=== PATIENT | male | born 1960 | race Caucasian/White ===

== ENCOUNTER 2023-07-09 07:18 | Observation (INO) | payer OTHER ==
[~2023-07-09] VITALS: Ht 172.7 cm; Wt 95.3 kg
[2023-07-09 07:29] VITALS: BP_SYST 145; PULSE 91; RESP 20; TEMP 98.9; O2SAT 96
[2023-07-09] MEDS ORDERED: VANCOMYCIN HCL 1,000 MG in NS 250 ML IV ONE (07:45)
[2023-07-09] MEDS ORDERED: KETOROLAC TROMETHAMINE 15 MG VIAL IVP ONE (07:45)
[2023-07-09 07:54] LABS: BASOPHILS % (AUTO) 0.3 % (0.0-2.0); EOSINOPHILS # (AUTO) 0.1 K/uL (0.0-0.4); EOSINOPHILS % (AUTO) 0.7 % (0.0-4.0); HEMATOCRIT 38.6 % (36-54); HEMOGLOBIN 12.6 g/dL (14.0-18.0); LYMPHOCYTES # (AUTO) 1.3 K/uL (1.0-5.5); LYMPHOCYTES % (AUTO) 10.6 % (20.5-51.5); MEAN CORPUSCULAR HEMOGLOBIN 27 pg (27-31); MEAN CORPUSCULAR HGB CONC 33 % (32-36); MEAN CORPUSCULAR VOLUME 84 fL (79.0-98.0); MONOCYTES # (AUTO) 1.4 K/uL (0.0-1.0); MONOCYTES % (AUTO) 11.3 % (1.7-9.3); NEUTROPHILS # (AUTO) 9.6 K/uL (1.8-7.7); NEUTROPHILS % (AUTO) 77.1 % (40.0-70.0); PLATELET COUNT (AUTO) 365 K/uL (130-430); RED CELL DISTRIBUTION WIDTH 12.8 % (9.0-15.0); WHITE BLOOD COUNT (AUTO) 12.5 K/uL (4.8-10.8)
[2023-07-09] MEDS ORDERED: VANCOMYCIN HCL 1000 MG/VIAL IV ONE (07:56)
[2023-07-09] MEDS ORDERED: ATOR20TA64 PO (08:04)
[2023-07-09 08:09] LABS: CALCIUM 9.9 mg/dL (8.4-11.0); CREATININE 1.35 mg/dL (0.55-1.30)
[2023-07-09 08:11] LABS: INR 1.1 (0.80-1.20); PROTHROMBIN TIME 10.9 SECS (9.5-12.5)
[2023-07-09 08:14] LABS: ALBUMIN 3.3 g/dL (3.4-4.8); TOTAL BILIRUBIN 0.5 mg/dL (0.0-1.0); TOTAL PROTEIN, SERUM 7.8 g/dL (6.4-8.3)
[2023-07-09] MEDS ORDERED: MIDAZOLAM HCL 2 MG/2 ML VIAL (VERSED) ONE (09:41)
[2023-07-09] MEDS ORDERED: fentaNYL CITRATE/PF 100 MCG/2 ML AMP ONE (09:42)
[2023-07-09] MEDS ORDERED: NACL 0.9% 1,000 ML IV ONE (09:45)
[2023-07-09] MEDS ORDERED: ONDANSETRON HCL 4 MG/2 ML VIAL ONE ×2 (10:00→12:43)
[2023-07-09] MEDS ORDERED: BUPIVACAINE /PF 0.25% 30 ML VIAL INJ ONE ×2 (10:00→12:43)
[2023-07-09] MEDS ORDERED: PROPOFOL 200MG/ 20ML VIAL (DIPRIVAN) IV ONE ×2 (10:00→12:43)
[2023-07-09] MEDS ORDERED: SUCCINYLCHOLINE CHLORIDE 20 MG/ML(QUELICIN) ONE ×2 (10:00→12:43)
[2023-07-09] MEDS ORDERED: SEVOFLURANE 15 MIN GAS INH ONE ×2 (10:00→12:43)
[2023-07-09] MEDS ORDERED: METOCLOPRAMIDE HCL 10 MG/2 ML VIAL ONE ×2 (10:00→12:43)
[2023-07-09] MEDS ORDERED: NS IRRIG SOLN 1000 ML IR ONE ×2 (10:00→12:43)
[2023-07-09] MEDS ORDERED: WATER FOR IRRIGATION,STERILE 1,000 ML IRRIG.SOLN IR ONE ×2 (10:00→12:43)
[2023-07-09] MEDS ORDERED: LR 1,000 ML IV.SOLN IV ONE ×2 (10:00→12:43)
[2023-07-09] MEDS ORDERED: ONDANSETRON HCL 4 MG/2 ML VIAL IVP PRN ×2 (11:00)
[2023-07-09] MEDS ORDERED: HYDROmorphone 2 MG/ML VIAL IVP PRN (11:00)
[2023-07-09] MEDS ORDERED: D5NS 1,000 ML IV SCH (11:00)
[2023-07-09] MEDS ORDERED: HYDROcodone/ACETAMIN 5-325 MG TAB (NORCO/ VICODIN) PO PRN (11:00)
[2023-07-09] MEDS ORDERED: ZOLPIDEM TARTRATE 5 MG TABLET PO PRN (11:00)
[2023-07-09] MEDS ORDERED: ACET1TAB93 PO (11:22)
[2023-07-09] MEDS ORDERED: CEPH250C PO (11:26)
[2023-07-09] MEDS ORDERED: HYDROmorphone 1 MG/ML INJ. CARTRIDGE ONE ×2 (11:56→16:55)
[2023-07-09] MEDS: HYDROmorphone 1 MG/ML INJ. CARTRIDGE IVP PRN ×2 (12:01→16:58)
[2023-07-09] MEDS ORDERED: ROCURONIUM BROMIDE 10 MG/ML (ZEMURON) ONE (12:43)
[2023-07-09] MEDS ORDERED: SUGAMMADEX SODIUM 200 MG/2 ML VIAL IV ONE (12:43)
[2023-07-09] MEDS ORDERED: DEXAMETHASONE SOD PHOSPHATE 4 MG/ML VIAL ONE (12:43)
[2023-07-09] MEDS ORDERED: ePHEDrine sulfate 50 MG/ML VIAL ONE (12:43)
[2023-07-09] MEDS ORDERED: NS 1000 ML IV.SOLN IV ONE (12:43)
[2023-07-09] MEDS ORDERED: GLYCOPYRROLATE 0.2 MG/ML VIAL ONE (12:43)
[2023-07-09] MEDS: CEFAZOLIN 1 GM IVPB PREMIX 50 ML IV SCH ×2 (14:43→22:38)
[2023-07-09 15:04] VITALS: BP_SYST 115; PULSE 79; RESP 18; TEMP 98.6
[2023-07-09 17:01] VITALS: BP_SYST 125; PULSE 80; RESP 17; TEMP 98.1; O2SAT 93
[2023-07-09] MEDS ORDERED: HYDROmorphone 1 MG/ML INJ. CARTRIDGE IVP PRN (17:30)
[2023-07-09] MEDS ORDERED: VANCOMYCIN HCL 1,500 MG in NS 250 ML IV SCH (19:00)
[2023-07-09 20:00] VITALS: BP_SYST 129; PULSE 18; RESP 18; TEMP 98.9; O2SAT 96
[2023-07-09] MEDS: CEFTAZIDIME 1 GM in D5W 50 ML IV SCH (21:17)
[2023-07-09] MEDS: MORPHINE 4 MG INJ. 4 MG/ML VIAL IVP PRN (22:29)
[2023-07-10 07:45] LABS: BASOPHILS % (AUTO) 0.5 % (0.0-2.0); EOSINOPHILS # (AUTO) 0.1 K/uL (0.0-0.4); EOSINOPHILS % (AUTO) 1.8 % (0.0-4.0); HEMATOCRIT 32.1 % (36-54); HEMOGLOBIN 10.6 g/dL (14.0-18.0); LYMPHOCYTES # (AUTO) 1.5 K/uL (1.0-5.5); LYMPHOCYTES % (AUTO) 18.6 % (20.5-51.5); MEAN CORPUSCULAR HEMOGLOBIN 28 pg (27-31); MEAN CORPUSCULAR HGB CONC 33 % (32-36); MEAN CORPUSCULAR VOLUME 84 fL (79.0-98.0); MONOCYTES # (AUTO) 1.2 K/uL (0.0-1.0); MONOCYTES % (AUTO) 14.7 % (1.7-9.3); NEUTROPHILS # (AUTO) 5.1 K/uL (1.8-7.7); NEUTROPHILS % (AUTO) 64.4 % (40.0-70.0); PLATELET COUNT (AUTO) 316 K/uL (130-430); RED BLOOD CELL COUNT(AUTO) 3.82 MIL/uL (4.2-6.2); RED CELL DISTRIBUTION WIDTH 12.9 % (9.0-15.0)
[2023-07-10 08:10] LABS: CALCIUM 8.9 mg/dL (8.4-11.0); CREATININE 1.33 mg/dL (0.55-1.30); POTASSIUM 4.3 mmol/L (3.5-5.1)
[2023-07-10 08:55] VITALS: BP_SYST 141; PULSE 76; RESP 18; TEMP 97.2
[2023-07-10] MEDS: CEFTAZIDIME 1 GM in D5W 50 ML IV SCH (09:01)
[2023-07-10 10:04] VITALS: O2SAT 0
[2023-07-10 12:03] VITALS: BP_SYST 135; PULSE 77; RESP 17; TEMP 97.7; O2SAT 97
[2023-07-10 14:50] VITALS: BP_SYST 147; PULSE 75
[2023-07-10] MEDS: MORPHINE 4 MG INJ. 4 MG/ML VIAL IVP PRN (14:50)
[2023-07-10 15:47] VITALS: BP_SYST 143; PULSE 74; RESP 16; TEMP 97.7
[2023-07-10 16:04] VITALS: BP_SYST 145; PULSE 75; RESP 18; TEMP 97.5; O2SAT 96
== END 2023-07-10 16:10 | disposition home health service (06) ==
LOC: SED 07:18 → SMU 11:15
PROVIDERS: ADMIT Specialist; ATTEND Specialist
DX: L02.212 Cutaneous abscess of back [any part, except buttock and flank] (principal); L72.3 Sebaceous cyst; L03.312 Cellulitis of back [any part except buttock and flank]; I10 Essential (primary) hypertension; E78.5 Hyperlipidemia, unspecified; F17.210 Nicotine dependence, cigarettes, uncomplicated; Z79.899 Other long term (current) drug therapy
CPT/HCPCS: 10061; 96365; 96366 ×2; 96375; 80053; 85025 ×2; 85610; 85730; 86886; 86900; 86901; 87081; 87040; 87070; 87075; 36415 ×2; 93005; 71045; 96367; 99285; 87101; 83605; 88304; 96376; 80048; J3370 ×2; J3490; J0690; J0713; J1885; J2765; J3465; J2405; J2704; J0330; J3010; J1170; J2270 ×2; J7060; J7120; J7050; J7030; G0378 ×2; J1100

== ENCOUNTER 2024-02-23 16:49 | Emergency (ER) | payer OTHER ==
[~2024-02-23] VITALS: Ht 172.7 cm; Wt 96.2 kg
[~2024-02-23 16:49] MED LIST: ATOR20TA64 PO; CEPH250C PO
[2024-02-23 17:05] VITALS: BP_SYST 174; PULSE 70; RESP 20; TEMP 99; O2SAT 97
[2024-02-23] MEDS: ONDANSETRON HCL 4 MG/2 ML VIAL IVP ONE (17:49)
[2024-02-23] MEDS: KETAMINE HCL 500 MG/10 ML VIAL IVP ONE (18:04)
[2024-02-23] MEDS ORDERED: LORazepam 2 MG/ML VIAL ONE (18:09)
[2024-02-23] MEDS ORDERED: AMOXICILLIN 500 MG CAPSULE PO ONE (19:15)
[2024-02-23 19:37] VITALS: BP_SYST 144; PULSE 76; RESP 15; TEMP 98.3; O2SAT 99
== END 2024-02-23 19:37 | disposition home or self-care (01) ==
LOC: SED 16:49
DX: M24.411 Recurrent dislocation, right shoulder (principal); E78.5 Hyperlipidemia, unspecified; Z79.899 Other long term (current) drug therapy; Z79.2 Long term (current) use of antibiotics
CPT/HCPCS: 99285; 23650; 96374; 73030; 88740; 73020; J2060; J2405; 94760

== ENCOUNTER 2024-02-24 01:13 | Emergency (ER) | payer OTHER ==
[~2024-02-24] VITALS: Ht 172.7 cm; Wt 96.2 kg
[2024-02-24 01:25] VITALS: BP_SYST 173; PULSE 68; RESP 20; TEMP 97.7; O2SAT 98
[2024-02-24] MEDS: ONDANSETRON HCL 4 MG/2 ML VIAL IVP ONE (03:21)
[2024-02-24] MEDS: KETOROLAC TROMETHAMINE 30 MG VIAL IVP ONE (03:21)
[2024-02-24] MEDS: HYDROmorphone 1 MG/ML INJ. CARTRIDGE IVP ONE (03:22)
[2024-02-24 04:33] VITALS: BP_SYST 140; PULSE 63; RESP 20; TEMP 97.7; O2SAT 98
== END 2024-02-24 04:33 | disposition home or self-care (01) ==
LOC: SED 01:13
DX: S43.084A Other dislocation of right shoulder joint, initial encounter (principal); E78.5 Hyperlipidemia, unspecified; Z79.899 Other long term (current) drug therapy; Z79.2 Long term (current) use of antibiotics; W18.39XA Other fall on same level, initial encounter; Y93.89 Activity, other specified; Y92.89 Other specified places as the place of occurrence of the external cause; Y99.8 Other external cause status
CPT/HCPCS: 99284; 23650; 96374; 96375; 73030; J1885; J2405; J1170